=== PATIENT | male | born 1985 | race Caucasian/White ===

== ENCOUNTER 2017-09-15 20:27 | Emergency (ER) | payer BC ==
[2017-09-15] MEDS ORDERED: UNKNOWN ANTIBIOTIC PO (21:06)
[2017-09-15] MEDS ORDERED: IBUP-103 PO (21:06)
[2017-09-15] MEDS ORDERED: CLR10 PO (21:06)
--- NOTE | 2017-09-15 21:39 | EMERGENCY ROOM VISIT NOTE ---
History Report prepared by Katy: Carmela Perez Under the Supervision of: Dr. Cortez Acevedo M.D. 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 He states that he did not notice anything initially, though his belly button became swollen overnight and red. He was recently seen by urgent care and was diagnosed with an infection. He was prescribed antibiotics and states that he completed the 10 treatment. He was applying hot compresses, which provided drainage relief. He notes the pain has returned and is worse than before. He denies any history of hernias in the past. He denies any fevers, coughs, or chills. 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 Review of Systems See HPI for pertinent positives and negatives. A total of ten systems were reviewed and were otherwise negative. Past Medical & Surgical Medical Problems: (1) Asthma Surgical Problems: (1) History of appendectomy Family History No pertinent family history Social History Smoking Status: Never Smoker Smokeless Tobacco Use: No Alcohol Use: none Drug Use: none Marital Status: Housing Status: lives with significant other Occupation Status: employed Current/Historical Medications Scheduled Cephalexin Monohydrate (Keflex), 500 MG PO QID Saccharomyces Boulardii (Florastor), 1 CAP PO BID Sulfa/Trimethoprim (Bactrim Ds 800MG/160MG), 2 TAB PO BID [Unknown Antibiotic], 1 DOSE PO DIRECTED Scheduled PRN Ibuprofen Tab (Advil), 200-600 MG PO Q4H PRN for Pain Loratadine (Claritin), 10 MG PO DAILY PRN for Nasal Congestion Allergies Coded Allergies: No Known Allergies (Unverified , 09/15/17) Physical Exam Vital Signs Date Time Temp Pulse Resp B/P (MAP) Pulse Ox O2 Delivery O2 Flow Rate FiO2 09/16/17 00:48 88 20 132/70 98 09/15/17 23:37 37.2 92 20 122/65 98 Room Air 09/15/17 20:39 36.7 85 18 131/57 96 Room Air Physical Exam GENERAL: Awake, alert, uncomfortable-appearing, in no distress HENT: Normocephalic, atraumatic. Oropharynx unremarkable. EYES: Normal conjunctiva. Sclera non-icteric. NECK: Supple. No nuchal rigidity. FROM. No JVD. RESPIRATORY: Clear to auscultation. CARDIAC: Regular rate, normal rhythm. Extremities warm and well perfused. Pulses equal. ABDOMEN: Soft, non-distended. No rebound or guarding. No masses. 5 cm supra- umbilical area of erythema, induration, and fluctuance with tenderness, otherwise abdomen is benign. RECTAL: Deferred. MUSCULOSKELETAL: Chest examination reveals no tenderness. The back is symmetrical on inspection without obvious abnormality. There is no CVA tenderness to palpation. No joint edema. LOWER EXTREMITIES: Calves are equal size bilaterally and non-tender. No edema. No discoloration. NEURO: Normal sensorium. No sensory or motor deficits noted. SKIN: No rash or jaundice noted. Medical Decision & Procedures Medications Administered Medications (Trade) Dose Ordered Sig/Luis Route Start Time Stop Time Status Last Admin Dose Admin Cephalexin Monohydrate (Keflex Cap) 500 mg NOW ONCE PO 09/15/17 23:45 09/15/17 23:46 DC 09/15/17 23:51 500 MG Trimethoprim/ Sulfamethoxazole (Septra Ds 800/ 160MG Tab) 2 tab NOW STAT PO 09/15/17 23:36 09/15/17 23:39 DC 09/15/17 23:52 2 TAB Cephalexin Monohydrate (Keflex 500MG Home Pack) 1 homepack NOW ONCE PO 09/16/17 00:15 09/16/17 00:16 DC 09/16/17 00:41 1 HOMEPACK Trimethoprim/ Sulfamethoxazole (Sulfameth/ Trimeth Ds 800/ 160MG Home Pack) 1 homepack UD ONCE PO 09/16/17 00:15 09/16/17 00:16 DC 09/16/17 00:41 1 HOMEPACK Ibuprofen (Motrin Tab) 800 mg NOW STAT PO 09/16/17 00:06 09/16/17 00:08 DC 09/16/17 00:41 800 MG Procedure Incision & Drainage Indication: Abscess. Location: periumbilical Verbal consent was obtained after the risks and benefits were explained, including but not limited to bleeding, scarring, infection, pain, and bone/joint /nerve damage. At this time, the risks of the procedure are less than the risks of NOT performing the procedure. A time out was taken and the correct patient and site identified. The skin was prepped with betadine and a sterile field set. The wound was anesthetized with 3 ml of 1% lidocaine without epinephrine. The abscess cavity was entered with a number 11 blade and purulent material expressed. Copious irrigation was performed using normal saline. The wound was explored for foreign bodies and none found. Debridement was not performed. A sterile dressing applied. Detailed wound care instructions and signs and symptoms of worsening infection reviewed with the patient. No complications and the patient tolerated the procedure well. ED Course 2118: The patient was evaluated in room C9. A complete history and physical exam was performed. 2131: I reassessed the patient at this time. I performed an US. Findings showed : fluid collection consistent with abscess. No peristalsis to suggest hernia. 2299: I reassessed the patient at this time. I performed an I&D. Please see procedural note. I discussed the results and treatment plan with the patient. I answered all pertaining questions that he had. He expressed understanding and verbalized agreement. The patient will be discharged home. Medical Decision I reviewed the patient's past medical history, medications, and the nursing notes as described above. The patient's presentation and history were concerning for abscess, cellulitis, and hernia. The patient is a 32-year-old gentleman presents emergency Department with worsening periumbilical pain and redness after being treated outpatient for cellulitis per hpi. On arrival the patient is uncomfortable but in no acute distress, afebrile stable vital signs. On exam the patient has a 5 cm periumbilical area of erythema, warmth, induration, fluctuance consistent with abscess. Discrete fluid collection confirmed on bedside ultrasound. I&D performed successfully per procedure note. Culture sent. Will treat with Keflex and Bactrim. Case management assisting for wound clinic referral for wound check given that the patient has no primary doctor. Strict return instructions provided. Findings and plan for follow-up reviewed with patient. Patient agreeable and d/c'd per discharge instructions. Medication Reconcilliation Current Medication List: was personally reviewed by me Blood Pressure Screening Patient's blood pressure: Normal blood pressure Impression Primary Impression: Cutaneous abscess Scribe Attestation The scribe's documentation has been prepared under my direction and personally reviewed by me in its entirety. I confirm that the note above accurately reflects all work, treatment, procedures, and medical decision making performed by me. Departure Information Dispostion Home / Self-Care Prescriptions Saccharomyces Boulardii (Florastor) 250 Mg Cap 1 CAP PO BID for 10 Days, #20 CAP Prov: Cortez Acevedo M.D. 09/16/17 Sulfa/Trimethoprim (Bactrim Ds 800MG/160MG) Tab 2 TAB PO BID for 7 Days, #28 TABS Prov: Cortez Acevedo M.D. 09/16/17 Cephalexin Monohydrate (Keflex) 500 Mg Cap 500 MG PO QID for 7 Days, #28 CAP Prov: Cortez Acevedo M.D. 09/16/17 Forms HOME CARE DOCUMENTATION FORM, IMPORTANT VISIT INFORMATION, WORK / SCHOOL INSTRUCTIONS Patient Instructions Drainage Abscess, My [facility] Additional Instructions Please follow up with the wound clinic next week for re-evaluation. You were found to have an abscess, which was drained. Otherwise, your exam did not show signs of an emergent condition at this time. Change dressing 3 times daily. Take Keflex and Bactrim as directed. Florastor, probiotic, to help prevent antibiotic associated diarrhea. Acetaminophen or Ibuprofen for pain as needed. Return to the emergency department for worsening symptoms as described in the accompanying instructions. Problem Qualifiers Primary Impression: Cutaneous abscess Site of cutaneous abscess of trunk: umbilicus
[2017-09-15] MEDS ORDERED: XYLOCAINE 1%/SOD BICARB 20 ML VIAL INFIL ONE (21:45)
[2017-09-15] MEDS ORDERED: SULFAMETHOXAZOLE/TRIMETHOPRIM DS 800/160MG TAB PO STA (23:36)
[2017-09-15 23:37] VITALS: TEMP 37.2
[2017-09-15] MEDS ORDERED: CEPHALEXIN MONOHYDRATE 250 MG CAP PO ONE (23:45)
[2017-09-16] MEDS ORDERED: CEPH500C PO (00:03)
[2017-09-16] MEDS ORDERED: SULF800T23 PO (00:03)
[2017-09-16] MEDS ORDERED: SACC250C3 PO (00:05)
[2017-09-16] MEDS ORDERED: IBUPROFEN 800 MG TAB PO STA (00:06)
[2017-09-16] MEDS ORDERED: SEPTRA DS HOME PACK 1 EA VIAL PO ONE (00:15)
[2017-09-16] MEDS ORDERED: CEPHALEXIN 500MG HOME PACK 1 EA BTL PO ONE (00:15)
[2017-09-16 00:48] VITALS: BP 132/70; PULSE 88; O2SAT 98
== END 2017-09-16 00:49 | disposition home or self-care (01) ==
LOC: C.EDB 20:28 → C.EDC 09-16 00:49
DX: L02.216 Cutaneous abscess of umbilicus (principal); J45.909 Unspecified asthma, uncomplicated